=== PATIENT | male | born 1970 | race American Indian/Alaskan Native ===

== ENCOUNTER 2020-11-21 14:27 | Emergency (ER) | payer SELFPAY ==
[2020-11-21 16:25] LABS: Basophils % (Auto) 0.4 % (0.0-1.8); Eosinophils # (Auto) 0.1 K/mm3 (0.0-0.4); Hemoglobin 15.5 gm/dl (11.8-15.2); Lymphocytes # (Auto) 0.8 K/mm3 (1.2-5.4); Lymphocytes % (Auto) 15.2 % (13.4-35.0); Mean Corpuscular HGB Conc 34 % (32-34); Mean Corpuscular Volume 99 fl (84-94); Monocytes # (Auto) 0.8 K/mm3 (0.0-0.8); Monocytes % (Auto) 14.4 % (0.0-7.3); Platelet Count 218 K/mm3 (140-440); Red Blood Count 4.65 M/mm3 (3.65-5.03); Red Cell Distribution Width 12.1 % (13.2-15.2)
[2020-11-21 16:35] LABS: Alanine Aminotransferase 29 units/L (7-56); Albumin 5.1 g/dL (3.9-5); Blood Urea Nitrogen 8 mg/dL (9-20); Calcium 9.7 mg/dL (8.4-10.2); Hemolysis Index 20
[2020-11-21 16:36] LABS: BUN/Creatinine Ratio 11
[2020-11-21 17:52] VITALS: BP 182/125
--- NOTE | 2020-11-21 17:57 | Emergency Department Report ---
ED Male HPI - General Chief complaint: Urogenital-Male Stated complaint: BLEEDING FROM PENIS Source: patient Mode of arrival: Ambulatory Limitations: No Limitations - History of Present Illness Initial comments: 50-year-old -[place] male presents to the emergency room reporting blood coming out of his penis this morning. Patient states that he noticed it while he was in bed and blood just was coming from the head of his penis. Patient denies any pain. He denies any testicular pain no penile discharge. Patient reports he knows he has a history of hypertension but is currently on no blood pressure medicine and will intermittently take an aspirin thinking that it may help with his blood pressure. Patient denies any other blood thinner. Patient denies any headache no chest pain no shortness of breath. Patient states he had a similar issue 2 months ago but it went away. Patient denies any dizziness. It was noted that patient's blood pressure is 182/112 with a heart rate of 103. -: This morning - Related Data Allergies Allergy/AdvReac Type Severity Reaction Status Date / Time No Known Allergies Allergy Unverified 11/21/20 15:21 ED Review of Systems ROS: Stated complaint: BLEEDING FROM PENIS Other details as noted in HPI ED Past Medical Hx - Past Medical History Hx Hypertension: Yes ED Physical Exam - General Limitations: No Limitations General appearance: alert, in no apparent distress - Head Head exam: Present: atraumatic, normocephalic - Eye Eye exam: Present: normal appearance - ENT ENT exam: Present: mucous membranes moist - Neck Neck exam: Present: normal inspection - Respiratory Respiratory exam: Present: normal lung sounds bilaterally. Absent: respiratory distress - Cardiovascular Cardiovascular Exam: Present: regular rate, normal rhythm. Absent: systolic murmur, diastolic murmur, rubs, gallop - GI/Abdominal GI/Abdominal exam: Present: soft, normal bowel sounds - Rectal Rectal exam: Present: deferred - Extremities Exam Extremities exam: Present: normal inspection - Back Exam Back exam: Present: normal inspection - Neurological Exam Neurological exam: Present: alert, oriented X3, normal gait - Psychiatric Psychiatric exam: Present: normal affect, normal mood - Skin Skin exam: Present: warm, dry, intact, normal color. Absent: rash ED Course Vital Signs 11/21/20 11/21/20 15:22 17:51 Temperature 98.4 F Pulse Rate 104 H 101 H Respiratory 18 18 Rate Blood Pressure 180/126 Blood Pressure 182/125 [Left] O2 Sat by Pulse 99 98 Oximetry ED Medical Decision Making - Lab Data Result diagrams: 11/21/20 16:01 11/21/20 16:01 - Medical Decision Making 50-year-old -[place] male presents to the emergency room reporting blood coming out of his penis this morning. Patient states that he noticed it while he was in bed and blood just was coming from the head of his penis. Patient denies any pain. He denies any testicular pain no penile discharge. Patient reports he knows he has a history of hypertension but is currently on no blood pressure medicine and will intermittently take an aspirin thinking that it may help with his blood pressure. Patient denies any other blood thinner. Patient denies any headache no chest pain no shortness of breath. Patient states he had a similar issue 2 months ago but it went away. Patient denies any dizziness. It was noted that patient's blood pressure is 182/112 with a heart rate of 103. Urinalysis is pending Labs chemistry shows a sodium of 131 glucose is 168. Critical care attestation.: If time is entered above; I have spent that time in minutes in the direct care of this critically ill patient, excluding procedure time. ED Disposition Clinical Impression: History of hematuria Hypertension Qualifiers: Hypertension type: unspecified Qualified Code(s): I10 - Essential (primary) hypertension Disposition: - TO HOME OR SELFCARE Is pt being admited?: No Does the pt Need Aspirin: No Condition: Stable Instructions: Hypertension (ED), Hypertension, Adult, [id number] Additional Instructions: It is very important that she follow-up with urology as you need to have a cystoscopy to rule out any urinary malignancy. I have referred you to Dr. Thornton. His information is located below in your discharge summary. Also recommend for you to follow-up with a primary care provider to address your hy pertension. Referrals: PRIMARY CARE, [Primary Care Provider] - 3-5 Days ABI THORNTON MD [Staff Physician] - 3-5 Days YAIMA DOMINGUEZ MD [Staff Physician] - 3-5 Days Forms: Work/School Release Form(ED)
[2020-11-21 18:25] LABS: Bilirubin,Urine NEG (Negative); Blood,Urine NEG (Negative); Color,Urine Yellow (Yellow); Protein,Urine <15 mg/dL mg/dL (Negative); WBC,Urine < 1.0 /HPF (0.0-6.0)
== END 2020-11-21 20:34 | disposition home or self-care (01) ==
LOC: ED 14:27
DX: R31.9 Hematuria, unspecified (principal); I10 Essential (primary) hypertension
CPT/HCPCS: 36415; 80053; 81001; 85025; 99282

== ENCOUNTER 2022-03-27 16:15 | Emergency (ER) | payer SELFPAY | END 2022-03-27 20:08 | disposition left against medical advice (07) | LOC: ED 16:15 | DX: Z01.00 Encounter for examination of eyes and vision without abnormal findings (principal); Z53.21 Procedure and treatment not carried out due to patient leaving prior to being seen by health care provider ==